=== PATIENT | female | born 1960 | race Caucasian/White ===

== ENCOUNTER → 2018-02-28 16:28 | Outpatient (CLI) | payer OTHER, SELFPAY ==
--- NOTE | 2018-02-28 16:37 | RAD_ITS ---
STUDY: X-RAY CHEST REASON FOR EXAM: Female, 57 years old. Sarcoidosis TECHNIQUE: Frontal and lateral views of the chest. COMPARISON: None. FINDINGS: Normal lung volumes. Increased density in the anterior lung bases bilaterally is most suggestive of pleural thickening as suggested on the lateral view. No definite infiltrates or effusions. Normal size heart. Normal mediastinum and nitish. Normal visualized pulmonary arteries. Normal visualized aortic arch and descending thoracic aorta. There are diffuse degenerative changes of the visualized thoracic spine. Normal visualized ribs, clavicles, and shoulders. There is no demonstrated abnormality of the visualized soft tissue structures of the upper abdomen. RAD/Chest PA and Lateral IMPRESSION: No definite acute chest disease. Electronically Signed: Grady Barry MD at 18:05 EDT , Service support ,
[2018-02-28 18:01] LABS: Erythrocyte Sedimentation Rate 11 mm/hr (0-30)
[2018-02-28 18:02] LABS: AST(SGOT) 16 U/L (15-37); Alanine Aminotransfer ALT/SGPT 29 U/L (13-56); Albumin, Serum 3.8 g/dL (3.2-5.0); Alkaline Phosphatase 87 U/L (45-117); Bilirubin, Direct 0.12 mg/dL (0.00-0.30); Globulin 4.2 g/dL (2.2-4.2)
[2018-03-04 08:26] LABS: Angiotensin Convert Enzyme 28 U/L (14-82)
== END ==
PROVIDERS: Family Provider Nurse Practitioner; PCP Nurse Practitioner; Visit Provider Internal Medicine Pulmonary Disease
DX: D86.9 Sarcoidosis, unspecified (principal)
CPT/HCPCS: 36415; 71046; 80076; 82164; 82310; 85652

== ENCOUNTER → 2018-03-03 16:55 | Outpatient (CLI) | payer OTHER, SELFPAY ==
--- NOTE | 2018-03-03 16:59 | RAD_ITS ---
STUDY: X-RAY - LEFT ANKLE REASON FOR EXAM: Female, 57 years old. Pain TECHNIQUE: 3 view(s) of the ankle. COMPARISON: None. FINDINGS: There are prominent bony enthesophyte from the posterior and plantar surfaces of the os calcis. No acute fractures or dislocations. The ankle mortise and the subtalar joints are normal. A small spur from the medial malleolus. RAD/Ankle min 3 Views IMPRESSION: No acute fractures. Spurs from the medial malleolus, the posterior contour of the os calcis in the plantar surface of the os calcis. Electronically Signed: Trevin Beasley, at 1:21 EDT Tel , Service support ,
== END ==
LOC: MTLAB 16:56 → MTRAD 16:58
PROVIDERS: Family Provider Nurse Practitioner; PCP Nurse Practitioner; Visit Provider Nurse Practitioner Gerontology
DX: M25.572 Pain in left ankle and joints of left foot (principal)
CPT/HCPCS: 73610

== ENCOUNTER → 2018-03-20 07:48 | Outpatient (CLI) | payer OTHER, SELFPAY | PROVIDERS: Family Provider Nurse Practitioner; PCP Nurse Practitioner; Visit Provider Nurse Practitioner | DX: D86.3 Sarcoidosis of skin (principal); Z78.0 Asymptomatic menopausal state | CPT/HCPCS: 71250; 77080 ==

== ENCOUNTER → 2018-04-17 10:47 | Outpatient (CLI) | payer OTHER, SELFPAY | PROVIDERS: Family Provider Nurse Practitioner; PCP Nurse Practitioner; Visit Provider Internal Medicine Pulmonary Disease | DX: R91.1 Solitary pulmonary nodule (principal) | CPT/HCPCS: 87385 ==

== ENCOUNTER → 2018-05-15 07:07 | Outpatient (CLI) | payer OTHER, SELFPAY ==
--- NOTE | 2018-05-15 07:24 | MRI_ITS ---
STUDY: MRI LEFT ANKLE WITHOUT CONTRAST REASON FOR EXAM: Lateral ankle pain since 03/01/2018. Evaluate for peroneal tendon tear. TECHNIQUE: Standardized fat and water weighted pulse sequences were obtained in all 3 orthogonal planes. COMPARISON: Radiographs 03/03/2018. FINDINGS: Normal subcutis adipose space. Normal posterior tibialis tendon. Normal flexor digitorum longus tendon. Normal flexor hallucis longus tendon. Normal peroneus longus and brevis tendons without tenosynovitis, tendinosis or tendon tear. Normal tibialis anterior tendon. Normal extensor hallucis longus tendon. Normal extensor digitorum longus tendons. There is insertional Achilles tendinosis with tendon thickening and a small intrasubstance insertional partial Achilles tendon tear (inversion recovery sagittal images 14, 15) measuring 0.7 cm in length. There is retrocalcaneal bursitis and reactive bone edema in the adjacent posterior tuberosity of the calcaneus (inversion recovery sagittal images 11-17). There is a posterior calcaneal enthesophyte. Normal plantar fascia. There is a plantar calcaneal enthesophyte. Normal intrinsic muscles of the rearfoot. Normal distal tibiofibular syndesmotic ligamentous complex. Normal lateral ligamentous complex. Normal subtalar ligaments and sinus tarsi. Normal deltoid ligamentous complexes. Normal plantar calcaneonavicular (spring) ligament. There is a small osteochondral lesion of the posterior tibial plafond (T1 sagittal image 10) measuring 0.6 cm in length with cystic change of the fragment (inversion recovery sagittal images 9, 10). Normal talar dome. There is a small posterior subtalar joint effusion (inversion recovery sagittal image 15). There a small chondral tear of the proximal navicular at the talonavicular articulation (inversion recovery sagittal image 10; inversion recovery axial image 13) with subchondral cystic change of the proximal navicular. Normal calcaneocuboid articulation. Normal navicular-cuneiform articulations. There is a small os trigonum. MRI/Lower Ext Joint Only (Routine) IMPRESSION: Insertional Achilles tendinosis with small intrasubstance insertional partial Achilles tendon tear. Retrocalcaneal bursitis with reactive bone edema in the adjacent posterior tuberosity of the calcaneus. Small osteochondral lesion of the tibial plafond. Small chondral tear of the proximal navicular at the talonavicular joint with subchondral cystic change. Small posterior subtalar joint effusion. No demonstrated peroneal tendon tear. Electronically Signed: Henry Mckeon MD at 11:41 EDT Tel , Service support ,
== END ==
PROVIDERS: Family Provider Nurse Practitioner; PCP Nurse Practitioner; Referring Provider Podiatrist; Visit Provider Podiatrist
DX: S86.312A Strain of muscle(s) and tendon(s) of peroneal muscle group at lower leg level, left leg, initial encounter (principal)
CPT/HCPCS: 73721

== ENCOUNTER 2018-09-29 06:26 | Day surgery (SDC) | payer OTHER, SELFPAY ==
[2018-09-29 06:58] VITALS: BP 150/91; PULSE 97; RESP 16; TEMP 36.8; O2SAT 95; BMI 34.2
--- NOTE | 2018-09-29 07:20 | PCM.HP.STD ---
Problem List (1) Screening for colon cancer Status: Acute History of Present Illness Date of Admission: 09/29/18 The patient is a 58 year old F who presents for screening colonoscopy. Past Medical History Allergies sulfite Adverse Reaction (Verified 09/24/18 12:14) Itching Home Medications: Ambulatory Orders Medication Instructions Recorded Cholecalciferol (Vitamin D3) 1 tab PO DAILY 09/24/18 [Vitamin D3] Smoking Status: Never smoker - *Family History Maternal History Items: No pertinent history Review of Systems Cardiovascular: Denies: Chest Pain, Chest Pressure, Chest Tightness, Palpitations Respiratory: Denies: Cough, Hemoptysis, Shortness of breath at rest, Shortness of breath upon exertion, Wheezing Gastrointestinal: Denies: Abdominal Pain, Constipation, Diarrhea, Hematemesis, Nausea, Melena, Vomiting VTE Information - Inpt Only VTE Present on Admission: No VTE Mechan Device Prophylaxis: None VTE Pharm Prophylaxis ordered?: No Reason prophylaxis not ordered:: Treatment Not Indicated Patient Problems: Active and Suspected Problems Screening for colon cancer (Acute) - Physical Exam General: Alert, Oriented x3 Lungs: Clear to auscultation Cardiovascular: Regular rate, Regular Rhythm, No murmurs Abdomen: Bowel Sounds Present, Soft, Non Tender, Non-Distended Vital Signs Temp Pulse Resp BP Pulse Ox 98.2 F 97 16 150/91 H 95 09/29/18 06:58 09/29/18 06:58 09/29/18 06:58 09/29/18 06:58 09/29/18 06:58 Oxygen Delivery Method Room Air Weight: 205 lb 14.588 oz Body Mass Index (BMI) 34.2 Assessment/Plan All Active Problems Screening for colon cancer (Acute) Plan will be to perform a colonoscopy on her. Risk and benefits have been reviewed with her and her and she agrees to proceed. Risks include bleeding possible injury to the colon which could require further surgeries.
--- NOTE | 2018-09-29 07:44 | OP.ENDO_ITS ---
Patient Name: Albertina Schulte Procedure Date: 09/29/2018 7:19 AM Date of : 1960 Age: 58 Procedure: Colonoscopy Indications: Screening for colorectal malignant neoplasm Providers: Jerod Bhatt MD Medicines: See the Anesthesia note for documentation of the administered medications Patient Profile: This is a 58 year old female. Refer to note in patient chart for documentation of history and physical. Last Colonoscopy: none. The patient's first colonoscopy is today. Complications: No immediate complications. Procedure: Pre-Anesthesia Assessment: - Prior to the procedure, a History and Physical was performed, and patient medications and allergies were reviewed. The patient's tolerance of previous anesthesia was also reviewed. The risks and benefits of the procedure and the sedation options and risks were discussed with the patient. All questions were answered, and informed consent was obtained. Prior Anticoagulants: The patient has taken no previous anticoagulant or antiplatelet agents. ASA Grade Assessment: II - A patient with mild systemic disease. After reviewing the risks and benefits, the patient was deemed in satisfactory condition to undergo the procedure. After I obtained informed consent, the scope was passed under direct vision. Throughout the procedure, the patient's blood pressure, pulse, and oxygen saturations were monitored continuously. The adult colonoscope was introduced through the anus and advanced to the cecum, identified by appendiceal orifice and ileocecal valve. The colonoscopy was performed without difficulty. The patient tolerated the procedure well. The quality of the bowel preparation was good. Scope In: 7:29:42 AM Scope Withdrawal Time 0 hours 6 minutes 3 seconds Scope Out: 7:39:49 AM Total Procedure Duration Time 0 hours 10 minutes 7 seconds Findings: The perianal and digital rectal examinations were normal. Pertinent negatives include normal sphincter tone. Non-bleeding internal hemorrhoids were found during retroflexion. The hemorrhoids were mild and small. The exam was otherwise without abnormality. Impression: - Non-bleeding internal hemorrhoids. - The examination was otherwise normal. - No specimens collected. Recommendation: - Discharge patient to home. - Resume previous diet. - Continue present medications. - Repeat colonoscopy in 10 years for screening purposes. - Return to primary care physician PRN. Procedure Code(s): --- Professional --- 98599, Colonoscopy, flexible; diagnostic, including collection of specimen(s) by brushing or washing, when performed (separate procedure) Diagnosis Code(s): --- Professional --- Z12.11, Encounter for screening for malignant neoplasm of colon K64.8, Other hemorrhoids CPT copyright 2017 [employer]. All rights reserved. The codes documented in this report are preliminary and upon material spreader review may be revised to meet current compliance requirements. MD Jerod Avilez MD 09/29/2018 7:43:40 AM This report has been signed electronically. Number of Addenda: 0 Note Initiated On: 09/29/2018 7:19 AM
[2018-09-29 07:45] VITALS: BP 121/78; BP 133/83; BP 150/91; PULSE 80; PULSE 82; RESP 16; TEMP 36.5; O2SAT 96; O2SAT 97
[2018-09-29 07:55] VITALS: BP 134/86; BP 150/91; PULSE 73; RESP 16; O2SAT 97
[2018-09-29 07:59] VITALS: BP 138/93; BP 150/91; PULSE 68; RESP 16; TEMP 36.6; O2SAT 96
[2018-09-29 08:05] VITALS: BP 150/91
== END 2018-09-29 08:27 | disposition home or self-care (01) ==
LOC: EN 06:26 → AC 06:28
PROVIDERS: Family Provider Nurse Practitioner; PCP Nurse Practitioner; Referring Provider Surgery; Visit Provider Surgery
PROC: 0DJD8ZZ Inspection of Lower Intestinal Tract, Via Natural or Artificial Opening Endoscopic (ICD-10-PCS; CPT 45378; principal; 2018-09-29 07:25)
DX: Z12.11 Encounter for screening for malignant neoplasm of colon (principal); K64.8 Other hemorrhoids
CPT/HCPCS: 45378; J7120; J1610

== ENCOUNTER → 2018-10-23 07:47 | Outpatient (CLI) | payer OTHER, SELFPAY ==
[2018-09-29 06:58] VITALS: BMI 34.2
--- NOTE | 2018-10-23 07:50 | CT_ITS ---
STUDY: CT CHEST WITHOUT CONTRAST REASON FOR EXAM: Female, 58 years old. Lung nodule RADIATION DOSAGE (If Supplied By Facility): CTDIvol = ( 14.80 ) mGy, DLP = ( 528.77 ) mGycm TECHNIQUE: Transaxial imaging was performed without the administration of intravenous contrast material. Individualized dose optimization techniques were used for this CT. COMPARISON: 03/20/2018 FINDINGS: Lungs are adequately inflated. No acute airspace disease. There is a stable area of scarring in the anterior right middle lobe with nodular-like component. Stable from prior exam. No other pulmonary masses or nodules. Normal heart and pericardium. Decreased size and mediastinal lymphadenopathy as compared to the prior exam. Normal hilar regions. Normal unenhanced pulmonary arteries. Normal aorta arch and descending thoracic aorta. Normal osseous structures. There is no demonstrated abnormality of the visualized upper abdomen. CT/Chest without Contrast IMPRESSION: No acute airspace disease. Stable area of scarring with nodular-like component in the anterior right middle lobe. No concerning masses or nodules. Stable mild scarring in the lingula. Decreased mediastinal lymph nodes. Electronically Signed: Ananda Walls DO at 11:06 EDT Tel , Service support ,
--- NOTE | 2018-10-23 08:30 | BI_ITS ---
MAMMOGRAPHY - BILATERAL SCREENING 3-D DAE SYNTHESIS REASON FOR EXAM: Female, 58 years old. Bilateral Screening 3-D tomosynthesis PERTINENT HISTORY: Family history of breast cancer in mother at age 63 and 2 sisters. TECHNIQUE: 2-D mammograms and 3-D Dae synthesis of the breast (s) were performed. CAD was performed. COMPARISON: March 29, 2016 FINDINGS: The breast composition is almost entirely fat. Scattered benign calcifications are stable. There are stable lymph nodes. No dense spiculated masses or suspicious microcalcifications are identified. No architectural distortion is identified. There is no skin thickening or retraction. There has been no significant change since the prior study. BI/SCREENING MAMM (CAD), BILAT IMPRESSION: No mammographic signs of malignancy. Routine yearly mammograms recommended. ASSESSMENT CATEGORY: BIRADS Category 2: Benign. A letter regarding these results will be sent to the patient by the facility within 30 days. FOLLOW UP RECOMMENDATION: Yearly follow up mammogram recommended. (A) Approximately 10% of breast cancers are not detected by mammography. A normal mammogram should not delay biopsy of a clinically suspicious abnormality. Electronically Signed: John Waller MD at 16:39 EDT , Service support ,
== END ==
PROVIDERS: Family Provider Nurse Practitioner; PCP Nurse Practitioner; Referring Provider Nurse Practitioner; Visit Provider Nurse Practitioner
DX: Z12.31 Encounter for screening mammogram for malignant neoplasm of breast (principal); R91.1 Solitary pulmonary nodule
CPT/HCPCS: 71250; 77063; 77067

== ENCOUNTER 2019-01-15 08:00 | Outpatient (RCR) | payer OTHER, SELFPAY ==
[2018-11-13 14:33] VITALS: BMI 34.2
--- NOTE | 2018-12-25 13:43 | HP.PTEVAL_ITS ---
Patient's Visit Information DICKSON MCDOWELL is a 58 year old F referred to Physical Therapy by Rober Garcia DPM with a diagnosis of Left Achilles Partial Tear. Date of Evaluation: 12/25/18 Physical Therapist: Amirah Snowden DPT - Visit Plan Frequency: 2x /Week Duration: 4 Weeks Plan: Ultrasound, dry needling and STM to achilles- Flexibility and eccentric exercises - Subjective Findings: Tore left achilles tendon- walking through a wearhouse. Got in with Dr. Garcia in April was in a boot until July and then went to the ankle brace and tried to wean out of it and it got really mad (October-November). Last week went to see him and she has a bulge and put her back in the ankle brace and sent her to PT. Had EPAT last week and again today. Had EPAT over the winter time and then he restarted it again. Is unsure how many he is planning on doing with it. Patient reports that its pretty tender when she pushes on it- in her feet all day works retail. Worst: 10/12 Agg: not wear the boot- toothache pains . When she wears the boot she is mostly painfree. In a regular tennis shoe without the boot the lateral part of the ankle swells and she can't DF and it gets stiff. Work: walks anywhere from 3-7 miles a day at work. Very active. Sleep: not disturbed. Does wear orthotics PowerStep and tennis shoes at work. No radiating pain. Had an MRI in . PMHx: sarcodosis. Meds: Vit D3, - Objective Posture: fair throughout session in hard back chair. Gait: pes planus and decreased heel/toe pattern on left LE. HR/TR: able with mild increase in discomfort. SLS: 10 sec then LOB. Palpation: tender along distal achilles. ROM: DF: 8 degrees from neutral, PF: 50 degrees, Inv: 30 degrees, Ever: 20 degrees. Flex: Gastroc:severe, Soleus: moderate. Strength: 5/5 in available range - Goals Goal 1:: Patient will be I with HEP and progression Goal Time Frame: 4-6 Weeks Goal 2:: Patient will demo 10 degrees of DF Goal Time Frame: 4-6 Weeks Goal 3:: Patient will SLS for 30 sec without LOB Goal Time Frame: 4-6 Weeks - Rehabilitation Potential Physical Therapy Diagnosis: Patient presents with hypomobility- she has decreased ROM, strenght, flex and muscular endurance leading to abnormal gait and increased pain with ADL's. Rehabilitation Potential: Fair - Anticipated Interventions Patient/Client Instruction: Educate patient on: Benefits of Fitness Program Therapeutic Exercise to Include: Strength training, Endurance training, Balance training, Agility training, Body mechanics, Postural training, Flexibilty training, Gait and locomotor training, Passive ROM, Active ROM, Dynamic Lumbar Stabilization For the Purpose of:: To improve muscle performance and motor function Manual Therapy Techniques to Include: Mobilization, Functional dry needling, Soft tissue mobilization For the Purpose of:: To improve nutrient delivery to tissue TENS: Yes Cryotherapy (ice pack, ice massage): Yes Thermo therapy (hot pack): Yes Ultrasound (thermal/non thermal): Yes Thank you for the opportunity to evaluate your patient. For Medicare and Medicare HMO plans, please review the plan of care and approve it. It will need to be FAXED BACK to us at [phone] for Medicare purposes. For Medicare only, by signing this I certify the plan of care. Please let me know if there are questions or concerns regarding this plan of care. Physician Signature: Date:
--- NOTE | 2019-02-20 08:21 | HP.PT.NRP ---
HP - Discharge Summary (1) - Patient Information DICKSON MCDOWELL was seen in my office for initial evaluation on 12/25/18. The following Plan of Care was established for this patient: Initial Frequency: 2x /Week Initial Duration: 4 Weeks - Anticipated Interventions Patient/Client Instruction: Educate patient on: Benefits of Fitness Program Therapeutic Exercise to Include: Strength training, Endurance training, Balance training, Agility training, Body mechanics, Postural training, Flexibilty training, Gait and locomotor training, Passive ROM, Active ROM, Dynamic Lumbar Stabilization For the Purpose of:: To improve muscle performance and motor function Manual Therapy Techniques to Include: Mobilization, Functional dry needling, Soft tissue mobilization For the Purpose of:: To improve nutrient delivery to tissue TENS: Yes Cryotherapy (ice pack, ice massage): Yes Thermo therapy (hot pack): Yes Ultrasound (thermal/non thermal): Yes This patient was last seen in our office . Pertinent comments regarding their Physical therapy will appear below: Patient attended PT for self pay dry needling- appropriate to be d/c at this time. At this point I will be discontinuing this patient from physical therapy. I would be happy to see this patient again in the future if found appropriate by the physician. Thank you! Amirah Snowden DPT
== END 2019-01-15 19:00 | disposition home or self-care (01) ==
LOC: PT 08:00
PROVIDERS: Family Provider Nurse Practitioner; PCP Nurse Practitioner; Referring Provider Podiatrist; Visit Provider Podiatrist
DX: M76.62 Achilles tendinitis, left leg (principal); S86.012D Strain of left Achilles tendon, subsequent encounter
CPT/HCPCS: 97035; 97110; 97140; 97161

== ENCOUNTER → 2019-05-14 13:11 | Outpatient (CLI) | payer OTHER, SELFPAY ==
[2018-11-13 14:33] VITALS: BMI 34.2
--- NOTE | 2019-05-14 13:29 | MRI_ITS ---
STUDY: MRI LEFT ANKLE WITHOUT CONTRAST REASON FOR EXAM: Posterior pain, evaluate healing of partial Achilles tendon tear. TECHNIQUE: Standardized fat and water weighted pulse sequences were obtained in all 3 orthogonal planes. COMPARISON: MRI images 05/15/2018 and radiographs 03/03/2018. FINDINGS: There is mild edema in the posterior lateral subcutis adipose space. Normal posterior tibialis tendon. Normal flexor digitorum longus tendon. Normal flexor hallucis longus tendon. Normal peroneus longus and brevis tendons. Normal tibialis anterior tendon. Normal extensor hallucis longus tendon. Normal extensor digitorum longus tendons. There is fusiform thickening of the distal Achilles tendon as on the prior study consistent with tendinosis with ill-defined signal at the site of the previous intrasubstance insertional Achilles tendon tear (inversion recovery sagittal images 11, 12) consistent with scarring. There is a posterior calcaneal enthesophyte and a small cyst in the posterior tuberosity of the calcaneus at the Achilles tendon insertion (inversion recovery sagittal image 12). There is mild persistent reactive bone edema in the posterior tuberosity calcaneus at the insertion of the Achilles tendon (inversion recovery sagittal images 9-13) with decrease of the retrocalcaneal bursitis (inversion recovery sagittal images 11-13). Normal plantar fascia. There is a plantar calcaneal enthesophyte. Normal intrinsic muscles of the rearfoot. Normal distal tibiofibular syndesmotic ligamentous complex. Normal lateral ligamentous complex. Normal subtalar ligaments and sinus tarsi. Normal deltoid ligamentous complexes. Normal plantar calcaneonavicular (spring) ligament. There is a small osteochondral lesion of the tibial plafond (T1 sagittal image 9) as on the prior study. Normal talar dome. There is a small posterior subtalar joint effusion (inversion recovery sagittal images 12-14). There is a small chondral tear of the proximal navicular at the talonavicular articulation (inversion recovery series 11 image 13) with subchondral cystic change/mild bone edema of the proximal navicular as on the prior study. Normal calcaneocuboid articulation. Normal navicular-cuneiform articulations. MRI/Lower Ext Joint Only (Routine) IMPRESSION: Insertional Achilles tendinosis with scarring at the previous site of the intrasubstance Achilles partial tendon tear. Mild persistent bone edema of the posterior tuberosity of the calcaneus with interval decrease of the retrocalcaneal bursitis. Small osteochondral lesion of the tibial plafond without interval change. No interval change of the small chondral tear of the proximal navicular with subchondral cystic change/mild bone edema. Small posterior subtalar joint effusion. Electronically Signed: Henyr Mckeon MD at 9:50 EDT Tel , Service support ,
== END ==
PROVIDERS: Family Provider Nurse Practitioner; PCP Nurse Practitioner; Referring Provider Podiatrist; Visit Provider Podiatrist
DX: S86.012A Strain of left Achilles tendon, initial encounter (principal)
CPT/HCPCS: 73721

== ENCOUNTER → 2019-10-22 11:41 | Outpatient (CLI) | payer OTHER, SELFPAY ==
[2018-11-13 14:33] VITALS: BMI 34.2
--- NOTE | 2019-10-22 11:45 | RAD_ITS ---
STUDY: X-RAY CHEST REASON FOR EXAM: Female, 59 years old. SARCOIDOSIS TECHNIQUE: PA and lateral views of the chest. COMPARISON: 01/29/2018. FINDINGS: Cardiac silhouette unremarkable. Pulmonary vascularity unremarkable. Aorta unremarkable. No focal airspace consolidation. No pleural effusions. Minimal nodularity in the right mid and lower lung. Upper abdomen unremarkable. Osseous structures intact. No pneumothorax. RAD/Chest PA and Lateral IMPRESSION: No acute cardiopulmonary findings. Minimal nodularity at the right mid and lower lung may be related to the chronic changes seen on the prior CT. Electronically Signed: Stanley Colindres, at 21:49 EDT Tel , Service support ,
[2019-10-22 16:00] LABS: Erythrocyte Sedimentation Rate 21 mm/hr (0-30)
[2019-10-26 15:41] LABS: Angiotensin Convert Enzyme 31 U/L (14-82)
== END ==
PROVIDERS: PCP Nurse Practitioner; Referring Provider Internal Medicine Pulmonary Disease; Visit Provider Internal Medicine Pulmonary Disease
DX: D86.9 Sarcoidosis, unspecified (principal)
CPT/HCPCS: 36415; 71046; 82164; 85652

== ENCOUNTER → 2019-11-05 08:33 | Outpatient (CLI) | payer OTHER, SELFPAY ==
[2018-11-13 14:33] VITALS: BMI 34.2
--- NOTE | 2019-11-05 08:45 | BI_ITS ---
MAMMOGRAPHY - BILATERAL SCREENING REASON FOR EXAM: Female, 59 years old. Routine annual screening examination. PERTINENT HISTORY: Sisters with breast cancer. Mother with breast cancer. TECHNIQUE: Digital bilateral breast dae (3D mammographic acquisition) in the CC and MLO projections. 2-D mediolateral oblique (MLO) and craniocaudad (CC) views of both breasts were obtained. CAD: Full Field Digital Mammography with Computer Added Detection was performed. COMPARISON: Comparison is made with prior study dated October 23, 2018. FINDINGS: Breast Composition: There are scattered areas of fibroglandular density. There are no dominant masses or suspicious calcifications. Stable benign-appearing bilateral axillary lymph nodes. No other significant abnormalities are identified. There has been no significant change since the prior study. BI/SCREEN MAMM (CAD) W/DAE BILAT IMPRESSION: Stable bilateral screening mammogram. Yearly follow-up mammogram recommended. (A) ASSESSMENT CATEGORY: BIRADS Category 2: Benign. A letter regarding these results will be sent to the patient by the facility within 30 days. Approximately 10% of breast cancers are not detected by mammography. A normal mammogram should not delay biopsy of a clinically suspicious abnormality. [id number] Electronically Signed: Se Coy, at 12:10 EDT , Service support ,
== END ==
LOC: OPBI 09:15
PROVIDERS: PCP Nurse Practitioner; Referring Provider Nurse Practitioner; Visit Provider Nurse Practitioner
DX: Z12.31 Encounter for screening mammogram for malignant neoplasm of breast (principal)
CPT/HCPCS: 77063; 77067

== ENCOUNTER → 2024-06-11 | Outpatient (CLI) | payer OTHER, SELFPAY | END | disposition home or self-care (01) | LOC: OPBI 13:33 | PROVIDERS: PCP Family Medicine; Referring Provider Family Medicine; Visit Provider Family Medicine | DX: Z12.31 Encounter for screening mammogram for malignant neoplasm of breast (principal); Z80.3 Family history of malignant neoplasm of breast | CPT/HCPCS: 77063; 77067 ==